=== PATIENT | female | born 1990 | race African-American/Black ===

== ENCOUNTER 2019-09-14 23:09 | Emergency (ER) | payer OTHER ==
[~2019-09-14] VITALS: Ht 180.3 cm; Wt 118.0 kg
--- NOTE | 2019-09-14 23:27 | PHYS DOC ---
Past History Past Medical History: Anemia, Anxiety, Asthma, Bronchitis, Migraines, Sinusitis Past Medical History Pulmonary Nodule 1.5 cm Rt. Hilar Smoking: Cigarettes General Adult EDM: Chief Complaint: DIZZY/LIGHT HEADED HPI: HPI: ".. I been dizzy... ".. I getting numbness in my hands.. feet... It been going on for over a week and 1/2.. I had something like this before in 2015... they thought I had blood clots... it runs in my family.. mother and grandmother... I was in [place]... just moved here recently this past December.. Patient is a 29 year old female works for the [employer] who presents with above hx and complaints of frontal headache, episodes of dizziness, peripheral numbness in hands and feet. Patient has history of the symptoms for the past week and a half. Patient previous had similar symptoms in 2014 when she was worked up for blood clots. There is family history of DVTs and pulmonary embolism with grandmother and mother. Patient does smoke tobacco and does have Deprol control and left arm. No recent travel outside the [facility] area. No specific ill contacts. Patient does have a history of pneumonia., Migraines, asthma, bronchitis, and continued tobacco use. Review of Systems: Review of Systems: Constitutional: Denies fever or chills Eyes: Denies change in visual acuity HENT: Denies nasal congestion or sore throat Respiratory: Complains of a nonproductive cough and some shortness of breath Cardiovascular: Denies chest pain or edema GI: Denies abdominal pain, , vomiting, bloody stools or diarrhea . Complains of nausea : Denies dysuria Musculoskeletal: Denies back pain or joint pain Integument: Denies rash Neurologic: Complains of headache. Denies focal weakness or sensory changes . Complaints of dizziness Endocrine: Denies polyuria or polydipsia Lymphatic: Denies swollen glands Psychiatric: Denies depression or anxiety Heart Score: HEART Score for Chest Pain: HEART Score for Chest Pain Response (Comments) Value History Moderately Suspicious 1 ECG Nonspecific Repolarizatio 1 Age < 45 0 Risk Factors 1 or 2 Risk Factors 1 Troponin < Normal Limit 0 Total 3 Risk Factors: Risk Factors: DM, Current or recent (<one month) smoker, HTN, HLP, family history of CAD, obesity. Risk Scores: Score 0 - 3: 2.5% MACE over next 6 weeks - Discharge Home Score 4 - 6: 20.3% MACE over next 6 weeks - Admit for Clinical Observation Score 7 - 10: 72.7% MACE over next 6 weeks - Early Invasive Strategies Family History: Family History: Pulmonary embolisms and DVTs and mother and grandmother Current Medications: Current Meds: See nursing for home medications Allergies: Allergies: No known drug allergies Physical Exam: PE: Constitutional: Moderate acute distress, non-toxic appearance. [] HENT: Normocephalic, atraumatic, bilateral external ears normal, oropharynx moist, no oral exudates, nose swollen turbinates. Eyes: PERRLA, EOMI, conjunctiva normal, no discharge. [] Neck: Normal range of motion, no tenderness, supple, no stridor. [] Cardiovascular:Heart rate regular rhythm, no murmur [] Lungs & Thorax: Bilateral breath sounds equal apex with few scattered wheezes auscultation [] Abdomen: Bowel sounds normal, soft, no tenderness, no masses, no pulsatile masses. Obese Skin: Warm, dry, no erythema, no rash. [] Back: No tenderness, no CVA tenderness. [] Extremities: No tenderness, no cyanosis, no clubbing, ROM intact, no edema. No appreciable cording in the legs Neurologic: Alert and oriented X 3, normal motor function, normal sensory function, no focal deficits noted. DTRs +2 patellar and brachial. Patient is amatory without problems. No drift. Psychologic: Affect anxious, judgement normal, mood normal. [] EKG: EKG: My interpretation EKG shows a supraventricular rhythm at ventricular rate of 67. Does have right axis deviation. There is some nonspecific contour abnormalities, however no findings of acute STEMI with contralateral changes. [] Radiology/Procedures: Radiology/Procedures: [address] [address] IMAGING REPORT Signed PATIENT: MONICA ROBERTO ACCOUNT: [id number] : 1990 LOCATION: ER AGE: 29 SEX: F EXAM STATUS: REG ER ORD. PHYSICIAN: TAHMINA NYE MD REASON: dyspnea, hx PE/DVT, OMNI 350, 100ml PROCEDURE: CT ANGIOGRAPHY CHEST CT angiography chest with contrast PQRS statement: CT scans at this facility use dose reduction including either automated exposure control, iterative reconstructions, and /or weight based radiation dosing via mA and kV modification when appropriate to reduce radiation dose to as low as reasonably achievable. HISTORY: Dyspnea. History of pulmonary embolism. Elevated d-dimer. TECHNIQUE: CT imaging of the chest with 3-D MIP reconstructions of the pulmonary arteries with 1 mm milliliters Omnipaque 350 intravenous contrast. FINDINGS: Heart size normal. Aorta and esophagus are unremarkable. No pulmonary artery emboli. Mild enlarged right hilar lymph nodes largest measuring 1.2 cm. No enlarged mediastinal adenopathy evident. No pneumothorax, pulmonary opacities or pleural effusions. The trachea and bronchi are unremarkable. Bones are unremarkable. Borderline enlarged axillary lymph nodes measuring up to 1 cm. IMPRESSION: 1. No acute process. No pulmonary artery emboli. 2. Mild enlarged right hilar 1.2 cm lymph node. This may be reactive. Conservative management with CT follow-up imaging in 6 months may be of benefit to document that this remains stable or resolves over time. Electronically signed by: Yoseph Grady MD (09/15/2019 3:43 AM) [id number] DICTATED AND SIGNED BY: YOSEPH GRADY MD DATE: 09/15/19342 CC: TAHMINA NYE MD; PCP,NO ~ [[address] [address] IMAGING REPORT Signed PATIENT: MONICA ROBERTO ACCOUNT: [id number] : 1990 LOCATION: ER AGE: 29 SEX: F EXAM STATUS: REG ER ORD. PHYSICIAN: TAHMINA NYE MD REASON: dyspnea, NAUSEA, DIZZINESS, EXTREMITIES NUMB PROCEDURE: ABDOMEN SUPINE & UPRIGHT PA and lateral chest x-ray HISTORY: Dizziness, dyspnea, extremity numbness FINDINGS: Heart size normal. Mediastinal silhouette is normal. No pneumothorax, pulmonary opacities or pleural effusions. Bones are unremarkable. IMPRESSION: No acute process. AP upright supine abdomen x-rays 2 views HISTORY: Nausea, dyspnea. FINDINGS: No pneumoperitoneum on the upright chest x-ray performed the same day. No abnormal dilated small bowel loops or abnormal air-fluid levels. There is mild gas within the small bowel. There is a moderate volume of stool within the large bowel. The bones and the soft tissues are unremarkable. IMPRESSION: Moderate volume of stool. No small bowel obstruction evident. Electronically signed by: Yoseph Grady MD (09/15/2019 2:20 AM) [id number] DICTATED AND SIGNED BY: YOSEPH GRADY MD DATE: 09/15/19219 CC: TAHMINA NYE MD; PCP,NO ~ ][place] [address] IMAGING REPORT Signed PATIENT: MONICA ROBERTO ACCOUNT: [id number] : 1990 LOCATION: ER AGE: 29 SEX: F EXAM STATUS: REG ER ORD. PHYSICIAN: TAHMINA NYE MD REASON: headache, DIZZINESS, EXTREMITIES NUMB PROCEDURE: CT HEAD WO CONTRAST CT head without contrast PQRS statement: CT scans at this facility use dose reduction including either automated exposure control, iterative reconstructions, and /or weight based radiation dosing via mA and kV modification when appropriate to reduce radiation dose to as low as reasonably achievable. HISTORY: Headache, dizziness, extremity numbness. CT head findings: No intracranial hemorrhage, mass, hydrocephalus or infarction. No acute ischemic change evident. Partial opacification ethmoid sinuses. Orbits, mastoids and bones are unremarkable. IMPRESSION: No acute intracranial CT abnormality. Ethmoid sinus disease. Electronically signed by: Yoseph Grady MD (09/15/2019 1:49 AM) [id number] DICTATED AND SIGNED BY: YOSEPH GRADY MD DATE: 09/15/19148 CC: TAHMINA NYE MD; PCP,NO ~ Course & Med Decision Making: Course & Med Decision Making Pertinent Labs and Imaging studies reviewed. (See chart for details) Pt. requesting discharge. Pt. declines admission. Can not lay on ED bed any longer. Discuss CT and lab work-up with patient. Patient is aware the risk of discharge. Encourage patient to stop smoking. Explained to patient this is a major risk factor. Will start patient on Eliquis 2.5 mg twice a day for DVT prophylaxis. Patient will start Keflex 500 mg 3 times a day. Use normal saline rinses to nose. Use Flonase 2 sprays at night. Must follow-up review ED work- up with primary care. Impression: 1. Episodic dizziness 2. Headache 3. Episodic peripheral numbness in hands and feet 4. Leukocytosis 12.3 5. Anemia 11.5 hemoglobin 6. Mild elevation d-dimer 0.64 7. Ethmoid sinusitis 8. Obese 9. Atypical Migraines 10. Rt. Hilar Adenopathy 1.2 cm 11. Tobacco Use 12. Constipation [] Dragon Disclaimer: Dragon Disclaimer: This electronic medical record was generated, in whole or in part, using a voice recognition dictation system. Departure Departure: Disposition: HOME/RESIDENCE PRIOR TO ADM Condition: STABLE Referrals: PCP,HOWARD (PCP) Scripts Apixaban (ELIQUIS) 2.5 Mg Tablet 2.5 MG PO BID for DVT prophylaxis, #60 TAB Prov: TAHMINA NYE MD 09/15/19 Cephalexin (KEFLEX) 500 Mg Capsule 500 MG PO TID for sinusitis for 10 Days, BOTTLE Prov: TAHMINA NYE MD 09/15/19 Dragon Disclaimer This chart was dictated in whole or in part using Voice Recognition software in a busy, high-work load, and often noisy Emergency Department environment. It may contain unintended and wholly unrecognized errors or omissions. TAHMINA NYE MD Sep 14, 2019 23:27
[2019-09-15 00:36] LABS: BARBITURATES NEG (NEG); BENZODIAZEPINES NEG (NEG); CANNABINOIDS NEG (NEG); COCAINE NEG (NEG); METHADONE NEG (NEG); OPIATES NEG (NEG); PHENCYCLIDINE NEG (NEG)
[2019-09-15 00:39] LABS: AMPHETAMINE/METHAMPHETAMINE NEG (NEG)
[2019-09-15 00:41] LABS: CLARITY,URINE CLEAR; COLOR,URINE YELLOW
[2019-09-15 00:42] LABS: BACTERIA,URINE 0 /HPF (0-FEW); BILIRUBIN,URINE NEG (NEG); GLUCOSE,URINE NEG (NEG); NITRITE,URINE NEG (NEG); RBC,URINE 0 /HPF (0-2); SQUAMOUS EPITHELIAL CELL,UR FEW /LPF; UROBILINOGEN,URINE 0.2 mg/dL (0.2 mg/dL); WBC,URINE OCC /HPF (0-4)
[2019-09-15] MEDS: IV RINGERS SOLUTION,LACTATED 1,000 ML IV SCH ×2 (01:00→01:13)
[2019-09-15 01:09] LABS: ANION GAP 9 (6-14); BLOOD UREA NITROGEN 11 mg/dL (7-20); CALCIUM 8.5 mg/dL (8.5-10.1); CARBON DIOXIDE 26 mmol/L (21-32); CHLORIDE 106 mmol/L (98-107); GFR 78.8; GLUCOSE 99 mg/dL (70-99); POTASSIUM 3.5 mmol/L (3.5-5.1); SODIUM 141 mmol/L (136-145)
[2019-09-15 01:11] LABS: BASO # 0.1 x10^3/uL (0.0-0.2); BASO % 1 % (0-3); EOS # 2.4 x10^3/uL (0.0-0.7); EOS % 19 % (0-3); HEMATOCRIT 35.4 % (36.0-47.0); HEMOGLOBIN 11.5 g/dL (12.0-15.5); LYMPH # 4.3 x10^3/uL (1.0-4.8); LYMPH % 35 % (24-48); MEAN CORPUSCULAR HEMOGLOBIN 27 pg (25-35); MEAN CORPUSCULAR HGB CONC 33 g/dL (31-37); MEAN CORPUSCULAR VOLUME 83 fL (79-100); MONO # 0.6 x10^3/uL (0.0-1.1); MONO % 5 % (0-9); NEUT % 41 % (31-73); PLATELET COUNT 342 x10^3/uL (140-400); RED BLOOD COUNT 4.28 x10^6/uL (3.50-5.40); RED CELL DISTRIBUTION WIDTH 14.6 % (11.5-14.5); WHITE BLOOD COUNT 12.3 x10^3/uL (4.0-11.0)
[2019-09-15 01:15] LABS: ALBUMIN 3.4 g/dL (3.4-5.0); ALK PHOS 75 U/L (46-116); ALT (SGPT) 16 U/L (14-59); AST (SGOT) 12 U/L (15-37); MAGNESIUM 1.9 mg/dL (1.8-2.4); TOTAL PROTEIN 6.8 g/dL (6.4-8.2)
[2019-09-15 01:17] LABS: DIRECT BILIRUBIN < 0.1 mg/dL (0.0-0.2); TOTAL BILIRUBIN < 0.1 mg/dL (0.2-1.0)
--- NOTE | 2019-09-15 01:52 | RAD ---
CT head without contrast PQRS statement: CT scans at this facility use dose reduction including either automated exposure control, iterative reconstructions, and /or weight based radiation dosing via mA and kV modification when appropriate to reduce radiation dose to as low as reasonably achievable. HISTORY: Headache, dizziness, extremity numbness. CT head findings: No intracranial hemorrhage, mass, hydrocephalus or infarction. No acute ischemic change evident. Partial opacification ethmoid sinuses. Orbits, mastoids and bones are unremarkable. IMPRESSION: No acute intracranial CT abnormality. Ethmoid sinus disease. Electronically signed by: Josue Grady MD (09/15/2019 1:49 AM) [id number]
--- NOTE | 2019-09-15 02:23 | RAD ---
PA and lateral chest x-ray HISTORY: Dizziness, dyspnea, extremity numbness FINDINGS: Heart size normal. Mediastinal silhouette is normal. No pneumothorax, pulmonary opacities or pleural effusions. Bones are unremarkable. IMPRESSION: No acute process. AP upright supine abdomen x-rays 2 views HISTORY: Nausea, dyspnea. FINDINGS: No pneumoperitoneum on the upright chest x-ray performed the same day. No abnormal dilated small bowel loops or abnormal air-fluid levels. There is mild gas within the small bowel. There is a moderate volume of stool within the large bowel. The bones and the soft tissues are unremarkable. IMPRESSION: Moderate volume of stool. No small bowel obstruction evident. Electronically signed by: Josue Grady MD (09/15/2019 2:20 AM) [id number]
[2019-09-15] MEDS ORDERED: IOHEXOL 350 MG/ML 100 ML VIAL. IV ONE (03:30)
[2019-09-15] MEDS ORDERED: ENOXAPARIN ** NOTE DOSE ** SYRINGE SQ ONE (03:30)
[2019-09-15] MEDS ORDERED: CONTRAST GIVEN MC PRN (03:45)
--- NOTE | 2019-09-15 03:46 | RAD ---
CT angiography chest with contrast PQRS statement: CT scans at this facility use dose reduction including either automated exposure control, iterative reconstructions, and /or weight based radiation dosing via mA and kV modification when appropriate to reduce radiation dose to as low as reasonably achievable. HISTORY: Dyspnea. History of pulmonary embolism. Elevated d-dimer. TECHNIQUE: CT imaging of the chest with 3-D MIP reconstructions of the pulmonary arteries with 1 mm milliliters Omnipaque 350 intravenous contrast. FINDINGS: Heart size normal. Aorta and esophagus are unremarkable. No pulmonary artery emboli. Mild enlarged right hilar lymph nodes largest measuring 1.2 cm. No enlarged mediastinal adenopathy evident. No pneumothorax, pulmonary opacities or pleural effusions. The trachea and bronchi are unremarkable. Bones are unremarkable. Borderline enlarged axillary lymph nodes measuring up to 1 cm. IMPRESSION: 1. No acute process. No pulmonary artery emboli. 2. Mild enlarged right hilar 1.2 cm lymph node. This may be reactive. Conservative management with CT follow-up imaging in 6 months may be of benefit to document that this remains stable or resolves over time. Electronically signed by: Josue Grady MD (09/15/2019 3:43 AM) [id number]
[2019-09-15 04:06] VITALS: BP 113/86
[2019-09-15] MEDS ORDERED: APIX2.5T PO (04:11)
[2019-09-15] MEDS ORDERED: CEPH-264 PO (04:11)
[2019-09-15] MEDS ORDERED: CEPHALEXIN 250 MG CAPSULE PO ONE (04:15)
[2019-09-15] MEDS ORDERED: cefTRIAXone IM 1 GM VIAL IM ONE ×2 (04:30→04:31)
--- NOTE | 2019-09-15 05:45 | EKG ---
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
== END 2019-09-15 04:45 | disposition home or self-care (01) ==
LOC: ER 23:09
DX: G43.909 Migraine, unspecified, not intractable, without status migrainosus (principal); R42 Dizziness and giddiness; R20.0 Anesthesia of skin; D72.829 Elevated white blood cell count, unspecified; D64.9 Anemia, unspecified; R79.1 Abnormal coagulation profile; J32.2 Chronic ethmoidal sinusitis; R59.0 Localized enlarged lymph nodes; K59.00 Constipation, unspecified; E66.9 Obesity, unspecified; F41.9 Anxiety disorder, unspecified; J45.909 Unspecified asthma, uncomplicated; F17.210 Nicotine dependence, cigarettes, uncomplicated; Z86.2 Personal history of diseases of the blood and blood-forming organs and certain disorders involving the immune mechanism; Z68.36 Body mass index [BMI] 36.0-36.9, adult
CPT/HCPCS: 36415; 70450; 71046; 71275; 74019; 80048; 80076; 80307; 81001; 81025; 82550; 83735; 84443; 84484; 85025; 85379; 85610; 85730; 93005; 96360; 96372; 99285; J0696; J1650; J7120; Q9967

== ENCOUNTER 2019-10-19 14:11 | Emergency (ER) | payer OTHER ==
[~2019-10-19] VITALS: Ht 180.3 cm; Wt 116.9 kg
[~2019-10-19 14:11] MED LIST: APIX2.5T PO; CEPH-264 PO
[2019-10-19] MEDS ORDERED: IV NORMAL SALINE 1,000ML 1,000 ML IV ONE (14:45)
[2019-10-19] MEDS ORDERED: ASPIRIN 325 MG TABLET PO ONE (14:50)
[2019-10-19] MEDS ORDERED: IOHEXOL 350 MG/ML 100 ML VIAL. IV ONE (14:55)
--- NOTE | 2019-10-19 14:56 | PHYS DOC ---
Past History Past Medical History: Asthma Additional Past Medical Histor: PE Past Surgical History: No Surgical History Smoking: Cigarettes Alcohol Use: Occasionally General Adult EDM: Chief Complaint: BACK PAIN - NO INJURY HPI: HPI: Patient is a [age] year old [sex] who presents with [] Review of Systems: Review of Systems: Constitutional: Denies fever or chills Eyes: Denies redness or discharge HENT: Denies nasal congestion or sore throat Respiratory: Denies cough or shortness of breath Cardiovascular: Denies chest pain or palpitations GI: Denies abdominal pain, nausea, vomiting, or diarrhea : Denies dysuria or hematuria Musculoskeletal: Denies back pain or joint pain Integument: Denies rash or skin lesion Neurologic: Denies headache, focal weakness or sensory changes Psychiatric: Denies depression or anxiety Complete systems were reviewed and found to be within normal limits, except as documented in this note. Heart Score: HEART Score for Chest Pain: HEART Score for Chest Pain Response (Comments) Value History Slighlty/Non-Suspicious 0 ECG Normal 0 Age < 45 0 Risk Factors No Risk Factors 0 Troponin < Normal Limit 0 Total 0 Current Medications: Current Meds: Current Medications Medications (Trade) Dose Ordered Sig/Christal Start Time Stop Time Status Last Admin Dose Admin Aspirin (Noemi Aspirin) 325 mg 1X ONCE 10/19/19 14:50 10/19/19 14:51 DC Iohexol (Omnipaque 350 Mg/ml) 100 ml 1X ONCE 10/19/19 14:55 10/19/19 14:56 Sodium Chloride 1,000 ml @ 1,000 mls/hr 1X ONCE 10/19/19 14:45 10/19/19 15:44 Allergies: Allergies: Allergies Coded Allergies Type Severity Reaction Last Updated Verified No Known Drug Allergies 09/15/19 No Physical Exam: PE: Constitutional: Well developed, well nourished, no acute distress, non-toxic appearance HENT: Normocephalic, atraumatic Eyes: PERRL, EOMI, conjunctiva normal, no discharge Neck: Normal range of motion, no tenderness, supple Cardiovascular: Heart rate normal, regular rhythm Lungs & Thorax: No respiratory distress, equal chest rise and fall Abdomen: Soft, no tenderness Skin: Warm, dry, no erythema, no rash Back: No tenderness, no CVA tenderness. Extremities: No tenderness, ROM intact, no edema Neurologic: Alert and oriented X 3, normal motor function, normal sensory function, no focal deficits noted Psychologic: Affect normal, judgement normal Current Patient Data: Vital Signs: Vital Signs Date Time Temp Pulse Resp B/P (MAP) Pulse Ox O2 Delivery O2 Flow Rate FiO2 10/19/19 14:31 98.0 107 18 116/72 (87) 98 Room Air EKG: EKG: @1450 NSR at 90bpm, NO ST elevation, QRS 82ms, QT/QTc 374/462ms Radiology/Procedures: Radiology/Procedures: PROCEDURE: CT ANGIOGRAPHY CHEST CT ANGIOGRAPHY CHEST History: Back pain. Pleuritic chest pain. Technique: CT of the chest was performed with intravenous contrast. PE protocol. Maximum intensity projection coronal and sagittal reconstructions were performed. Exposure: One or more of the following individualized dose reduction techniques were utilized for this examination: 1. Automated exposure control 2. Adjustment of the mA and/or kV according to patient size 3. Use of iterative reconstruction technique. Comparison: September 15, 2019 Findings: Chest: No pulmonary embolism. No aortic aneurysm or dissection. Mildly enlarged right hilar lymph node, unchanged. No consolidation or pleural effusion. Upper abdomen: The imaged upper abdomen is unremarkable. Bones: No pathologic osseous lesions. Impression: 1. No acute intrathoracic pathology. No pulmonary embolism. 2. Mildly enlarged right hilar lymph node, unchanged. Recommend continued follow-up as previously stated. Electronically signed by: Sen Ortiz DO (10/19/2019 3:40 PM) [id number] Course & Med Decision Making: Course & Med Decision Making Pertinent Labs and Imaging studies reviewed. (See chart for details) Patient stable for discharge home with outpatient follow-up with PCP. Discussed findings and plan with patient, who acknowledges understanding and agreement. Dragon Disclaimer: innocutis Disclaimer: This electronic medical record was generated, in whole or in part, using a voice recognition dictation system. Departure Departure: Impression: Primary Impression: Thoracic back pain Qualified Codes: M54.6 - Pain in thoracic spine Disposition: 01 HOME/RESIDENCE PRIOR TO ADM Condition: STABLE Referrals: YOVANI CRUZ MD (PCP) Patient Instructions: Back Pain, Adult, [id number] Scripts Orphenadrine Citrate (ORPHENADRINE CITRATE) 100 Mg Tablet.er 1 TAB PO BID PRN for MUSCLE PAIN, #14 TAB 0 Refills Prov: OCTAVIANO MARQUEZ DO 10/19/19 OCTAVIANO MARQUEZ DO October 19, 2019 14:56
[2019-10-19 15:20] LABS: BASO # 0.1 x10^3/uL (0.0-0.2); BASO % 1 % (0-3); EOS # 1.3 x10^3/uL (0.0-0.7); EOS % 12 % (0-3); HEMATOCRIT 35.5 % (36.0-47.0); HEMOGLOBIN 11.8 g/dL (12.0-15.5); LYMPH # 2.8 x10^3/uL (1.0-4.8); LYMPH % 27 % (24-48); MEAN CORPUSCULAR HEMOGLOBIN 27 pg (25-35); MEAN CORPUSCULAR HGB CONC 33 g/dL (31-37); MEAN CORPUSCULAR VOLUME 81 fL (79-100); MONO # 0.5 x10^3/uL (0.0-1.1); MONO % 5 % (0-9); NEUT # 5.7 x10^3uL (1.8-7.7); NEUT % 55 % (31-73); PLATELET COUNT 331 x10^3/uL (140-400); RED BLOOD COUNT 4.37 x10^6/uL (3.50-5.40); RED CELL DISTRIBUTION WIDTH 14.7 % (11.5-14.5); WHITE BLOOD COUNT 10.4 x10^3/uL (4.0-11.0)
[2019-10-19 15:33] LABS: CALCIUM 8.6 mg/dL (8.5-10.1); CREATININE 0.9 mg/dL (0.6-1.0); POTASSIUM 3.8 mmol/L (3.5-5.1)
[2019-10-19 15:37] LABS: BILIRUBIN,URINE NEG (NEG); CLARITY,URINE CLEAR; COLOR,URINE YELLOW; GLUCOSE,URINE NEG (NEG); NITRITE,URINE NEG (NEG); UROBILINOGEN,URINE 0.2 mg/dL (0.2 mg/dL)
[2019-10-19 15:42] LABS: RBC,URINE 0 /HPF (0-2); WBC,URINE 0 /HPF (0-4)
[2019-10-19 15:43] LABS: BACTERIA,URINE FEW /HPF (0-FEW); SQUAMOUS EPITHELIAL CELL,UR FEW /LPF
--- NOTE | 2019-10-19 15:43 | RAD ---
CT ANGIOGRAPHY CHEST History: Back pain. Pleuritic chest pain. Technique: CT of the chest was performed with intravenous contrast. PE protocol. Maximum intensity projection coronal and sagittal reconstructions were performed. Exposure: One or more of the following individualized dose reduction techniques were utilized for this examination: 1. Automated exposure control 2. Adjustment of the mA and/or kV according to patient size 3. Use of iterative reconstruction technique. Comparison: September 15, 2019 Findings: Chest: No pulmonary embolism. No aortic aneurysm or dissection. Mildly enlarged right hilar lymph node, unchanged. No consolidation or pleural effusion. Upper abdomen: The imaged upper abdomen is unremarkable. Bones: No pathologic osseous lesions. Impression: 1. No acute intrathoracic pathology. No pulmonary embolism. 2. Mildly enlarged right hilar lymph node, unchanged. Recommend continued follow-up as previously stated. Electronically signed by: Sen Ortiz DO (10/19/2019 3:40 PM) [id number]
--- NOTE | 2019-10-19 15:45 | EKG ---
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
[2019-10-19 16:04] VITALS: BP 117/55
[2019-10-19 16:17] LABS: ALBUMIN 3.3 g/dL (3.4-5.0); ALBUMIN/GLOBULIN RATIO 0.9 (1.0-1.7); TOTAL BILIRUBIN 0.3 mg/dL (0.2-1.0)
[2019-10-19] MEDS ORDERED: ORPH-16 PO (16:21)
== END 2019-10-19 16:52 | disposition home or self-care (01) ==
LOC: ER 14:11
DX: M54.6 Pain in thoracic spine (principal); J45.909 Unspecified asthma, uncomplicated; Z86.711 Personal history of pulmonary embolism; F17.210 Nicotine dependence, cigarettes, uncomplicated
CPT/HCPCS: 36415; 71275; 80053; 81001; 82553; 83690; 83735; 83880; 84484; 85025; 85610; 85730; 93005; 99285; Q9967; J7030

== ENCOUNTER 2019-11-01 08:51 | Emergency (ER) | payer OTHER ==
[~2019-11-01] VITALS: Ht 180.3 cm; Wt 118.2 kg
[2019-11-01 08:51] VITALS: BP 139/86
[~2019-11-01 08:51] MED LIST changes: +ORPH-16 PO
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
== END 2019-11-01 09:50 | disposition home or self-care (01) ==
LOC: ER 08:51
DX: S09.90XA Unspecified injury of head, initial encounter (principal); J45.909 Unspecified asthma, uncomplicated; F17.210 Nicotine dependence, cigarettes, uncomplicated; Y08.89XA Assault by other specified means, initial encounter; Y93.89 Activity, other specified; Y92.148 Other place in prison as the place of occurrence of the external cause; Y99.0 Civilian activity done for income or pay
CPT/HCPCS: 99281

== ENCOUNTER 2021-04-30 20:20 | Emergency (ER) | payer BC, OTHER ==
[~2021-04-30] VITALS: Ht 177.8 cm; Wt 123.2 kg
--- NOTE | 2021-04-30 21:04 | PHYS DOC ---
Past History Past Medical History: Anemia, Asthma, Other Additional Past Medical Histor: PE (VAIBHAV ROMERO APRN) Past Surgical History: No Surgical History (VAIBHAV ROMERO APRN) Smoking: Cigarettes Alcohol Use: Occasionally Drug Use: None (VAIBHAV ROMERO APRN) General Adult EDM: Chief Complaint: SHORTNESS OF BREATH HPI: HPI: Patient is a 30-year-old female who presents to the emergency department for multiple complaints including fatigue, thoracic back pain/body aches and shortness of breath. She reports that she has had a thoracic back pain for approximately 3 weeks. She rates it 5 out of 10. It is worse with movement. She denies any injury or heavy lifting. She reports the fatigue and the shortness of breath started 5 days ago. She denies any fevers, cough, sick exposure, nausea, vomiting. She reports that she has been having intermittent epigastric pain x3 weeks but denies it currently. Patient is vaccinated for COVID-19. She has a history of asthma and is a current smoker. (VAIBHAV ROMERO APRN) Review of Systems: Review of Systems: Constitutional: See HPI Respiratory: See HPI Cardiovascular: See HPI GI: See HPI Musculoskeletal: See HPI (VAIBHAV ROMERO APRN) Allergies: Allergies: Allergies Coded Allergies Type Severity Reaction Last Updated Verified No Known Drug Allergies 11/01/19 No (VAIBHAV ROMERO APRN) Physical Exam: PE: Constitutional: Well developed, well nourished, no acute distress, non-toxic appearance. [] HENT: Normocephalic, atraumatic, bilateral external ears normal, oropharynx moist, no oral exudates, nose normal. [] Eyes: PERRL, EOMI, conjunctiva normal, no discharge. [] Neck: Normal range of motion, no bony spinal tenderness, no meningeal signs, supple, no stridor. [] Cardiovascular:Heart rate regular rhythm, no murmur [] Lungs & Thorax: Bilateral breath sounds clear to auscultation [] Abdomen: Bowel sounds normal, soft, no tenderness, obese, no masses, no pulsatile masses. [] Skin: Warm, dry, no erythema, no rash. [] Back: [place]ony spinal tenderness, thoracic bilateral paraspinal tenderness with palpation, no obvious deformities, normal rom Extremities: No tenderness, no cyanosis, no clubbing, ROM intact, no edema. [] Neurologic: Alert and oriented X 3, normal motor function, normal sensory function, no focal deficits noted. [] Psychologic: Affect normal, judgement normal, mood normal. [] (VAIBHAV ROMERO APRN) Current Patient Data: Labs: Laboratory Tests Test 04/30/21 21:10 04/30/21 21:18 04/30/21 21:25 04/30/21 21:30 White Blood Count 10.8 x10^3/uL Red Blood Count 4.16 x10^6/uL Hemoglobin 10.5 g/dL Hematocrit 32.3 % Mean Corpuscular Volume 78 fL Mean Corpuscular Hemoglobin 25 pg Mean Corpuscular Hemoglobin Concent 33 g/dL Red Cell Distribution Width 15.9 % Platelet Count 364 x10^3/uL Neutrophils (%) (Auto) 46 % Lymphocytes (%) (Auto) 39 % Monocytes (%) (Auto) 6 % Eosinophils (%) (Auto) 8 % Basophils (%) (Auto) 1 % Neutrophils # (Auto) 5.0 x10^3uL Lymphocytes # (Auto) 4.3 x10^3/uL Monocytes # (Auto) 0.6 x10^3/uL Eosinophils # (Auto) 0.8 x10^3/uL Basophils # (Auto) 0.1 x10^3/uL Sodium Level 140 mmol/L Potassium Level 3.8 mmol/L Chloride Level 107 mmol/L Carbon Dioxide Level 26 mmol/L Anion Gap 7 Blood Urea Nitrogen 10 mg/dL Creatinine 1.1 mg/dL Estimated GFR (Cockcroft-Gault) 70.1 BUN/Creatinine Ratio 9 Glucose Level 84 mg/dL Calcium Level 8.7 mg/dL Total Bilirubin 0.1 mg/dL Aspartate Amino Transf (AST/SGOT) 15 U/L Alanine Aminotransferase (ALT/SGPT) 16 U/L Alkaline Phosphatase 76 U/L Troponin I High Sensitivity < 4 ng/L Total Protein 7.2 g/dL Albumin 3.4 g/dL Albumin/Globulin Ratio 0.9 Influenza Type A (Rapid) Negative Influenza Type B (Rapid) Negative SARS-CoV-2 Antigen (Rapid) Negative Urine Collection Type Unknown Urine Color Yellow Urine Clarity Clear Urine pH 6.5 Urine Specific [place] 1.020 Urine Protein Neg Urine Glucose (UA) Neg mg/dL Urine Ketones (Stick) Neg mg/dL Urine Blood Trace Urine Nitrite Neg Urine Bilirubin Neg Urine Urobilinogen Dipstick 0.2 mg/dL Urine Leukocyte Esterase Neg Urine RBC Rare /HPF Urine WBC Occ /HPF Urine Squamous Epithelial Cells Occ /LPF Urine Bacteria 0 /HPF Bedside Urine HCG, Qualitative hcg negative Test 04/30/21 23:05 D-Dimer (Sarah) 0.65 mg/L Current Medications Medications (Trade) Dose Ordered Sig/Christal Route PRN Reason Start Time Stop Time Status Last Admin Dose Admin Acetaminophen/ Hydrocodone Bitart (Lortab 5/325) 1 tab 1X ONCE PO 04/30/21 21:30 04/30/21 21:31 DC 04/30/21 21:30 Iohexol (Omnipaque 350 Mg/ml) 100 ml 1X ONCE IV 05/01/21 01:00 05/01/21 01:01 Info (Do NOT chart on this entry -- for MONITORING) 1 each PRN DAILY PRN MC SEE COMMENTS 05/01/21 00:45 05/03/21 00:44 (VAIBHAV ROMERO APRN) EKG: EKG: EKG performed by ER staff at 2213 shows sinus rhythm with a heart rate of 78, QTc of 451, no STEMI read by Dr. Candelaria at 2217 [] (VAIBHAV ROMERO APRN) Radiology/Procedures: Radiology/Procedures: []PROCEDURE: THORACIC SPINE 3V Study: XR THORACIC SPINE 3VIEWS Indication: Shortness of air. Upper back pain. Comparison: CT chest 10/19/2019 Findings: Minimal thoracic dextrocurvature. Vertebral body height and alignment is within normal limits on the lateral views. Incompletely assessed posterior elements on account of osseous overlap but no advanced facet degeneration is appreciated or fracture. Minimal degenerative endplate irregularity at a few levels. No disc space collapse. Impression: No acute radiographic abnormality of the thoracic spine or advanced spondylosis. Electronically signed by: CARSON SCHROEDER MD (04/30/2021 11:30 PM) [facility] DICTATED AND SIGNED BY: CARSON SCHROEDER MD DATE: 04/30/21 2323 CC: EMERGENCY,DEPARTMENT; VAIBHAV ROMERO APRN; PCP,UNKNOWN ~MTH0 0 PROCEDURE: PORTABLE CHEST 1V Study: XR CHEST 1V Indication: Shortness of air. Comparison: 09/15/2019 Findings: The cardiomediastinal silhouette and angelo are within normal limits. No localized airspace opacity, pleural effusion or pneumothorax. Impression: No acute radiographic abnormality of the chest. No relevant change from the 09/15/2019 comparison. Electronically signed by: CARSON SCHROEDER MD (04/30/2021 11:29 PM) [facility] DICTATED AND SIGNED BY: CARSON SCHROEDER MD DATE: 04/30/21 2684 CC: EMERGENCY,DEPARTMENT; VAIBHAV ROMERO APRN; PCP,UNKNOWN ~MTH0 0 (VAIBHAV ROMERO APRN) Radiology/Procedures: [address] [place] [id number] IMAGING REPORT Signed PATIENT: MONICA ROBERTO ACCOUNT: [id number] : 1990 LOCATION: ER AGE: 30 SEX: F EXAM STATUS: REG ER ORD. PHYSICIAN: VAIBHAV ROMERO APRN REASON: elevated ddimer, soa, OMNI 350, 100ml PROCEDURE: CT ANGIOGRAPHY CHEST INDICATION: Reason: elevated ddimer, soa, OMNI 350, 100ml / Spl. Instructions: / History: COMPARISON: September 2019 TECHNIQUE: Axial CT images obtained through the chest. Intravenous contrast utilized. Angiogram 3D images processed per protocol. One or more of the following individualized dose reduction techniques were utilized for this examination: 1. Automated exposure control; 2. Adjustment of the mA and/or kV according to patient size; 3. Use of iterative reconstruction technique. FINDINGS: No focal airspace consolidation or pulmonary edema. Partially visualized liver appears prominent in size. Repeat demonstration of prominent right hilar lymph node measuring up to about 15 mm short axis. There is also prominent lymph node in the subcarinal region. Portion of the ascending thoracic aorta is obscured by motion but no aneurysm is seen at visualized portion. There are some prominent lymph nodes in the axilla bilaterally again seen. Degenerative changes spine. Patient motion limits evaluation for pulmonary embolus but no central embolus is seen with peripheral vessels obscured by motion. IMPRESSION: No central pulmonary embolus. No focal airspace consolidation to suggest pneumonia. Repeat demonstration of some mildly enlarged lymph nodes in the bilateral axilla as well as the mediastinum Electronically signed by: Jamia Nolasco MD (05/01/2021 2:32 AM) [id number] DICTATED AND SIGNED BY: JAMIA NOLASCO MD DATE: 05/01/21223 CC: TAHMINA CANDELARIA MD; VAIBHAV ROMERO APRN; PCP,UNKNOWN ~MTH0 0 (TAHMINA CANDELARIA MD) Heart Score: C/O Chest Pain: No Risk Factors: Risk Factors: DM, Current or recent (<one month) smoker, HTN, HLP, family history of CAD, obesity. Risk Scores: Score 0 - 3: 2.5% MACE over next 6 weeks - Discharge Home Score 4 - 6: 20.3% MACE over next 6 weeks - Admit for Clinical Observation Score 7 - 10: 72.7% MACE over next 6 weeks - Early Invasive Strategies (VAIBHAV ROMERO APRN) Course & Med Decision Making: Course & Med Decision Making Pertinent Labs and Imaging studies reviewed. (See chart for details) Patient presents to the emergency department for fatigue, shortness of breath and thoracic back pain. Patient was noted to be mildly tachycardic upon ER arrival with a heart rate of 101. Work-up in the ER consisted of blood work, EKG, COVID-19 and influenza testing, chest x-ray and imaging of thoracic spine. Patient's heart rate has improved and is currently 85, she is afebrile and not hypoxic or requiring any oxygen. Patient's rapid influenza and COVID-19 test was negative. Her CBC, CMP, Trop were unremarkable. Chest x-ray showed no acute findings. Thoracic spine x-ray showed no acute findings. Patient's pain treated in the ER. Patient has hx of pe with her symptoms of shortness of breath, ddimer ordered. Patient is no longer taking eliquis. Ddimer elevated, CT angio ordered. 0100: awaiting ct angio results. I discussed patients case with supervising physician and he will assume patient care at this time. (VAIBHAV ROMERO APRN) Course & Med Decision Making See Ramesh for details prior shift change. CT pending. Patient continue MDI 2 puffs 4 times a day. Take prednisone 50 mg a day for 5 days. Return if any concerns. Follow-up primary care and have them review ED record. Impression: 1. Dyspnea 2. Pleurisy 3. Mild Elevation D-dimer (TAHMINA CANDELARIA MD) Dragon Disclaimer: Dragon Disclaimer: This electronic medical record was generated, in whole or in part, using a voice recognition dictation system. (VAIBHAV ROMERO APRN) Departure Departure: Disposition: HOME / SELF CARE / HOMELESS Condition: GOOD Referrals: PCP,UNKNOWN (PCP) Scripts Prednisone (PREDNISONE) 50 Mg Tablet 50 MG PO DAILY for bronchitis, pleurisy for 5 Days, #5 TAB Prov: TAHMINA CANDELARIA MD 05/01/21 Sudeep Disclaimer This chart was dictated in whole or in part using Voice Recognition software in a busy, high-work load, and often noisy Emergency Department environment. It may contain unintended and wholly unrecognized errors or omissions. (TAHMINA CANDELARIA MD) Dragon Disclaimer This chart was dictated in whole or in part using Voice Recognition software in a busy, high-work load, and often noisy Emergency Department environment. It may contain unintended and wholly unrecognized errors or omissions. (TAHMINA CANDELARIA MD) VAIBHAV ROMERO APRN Apr 30, 2021 21:04 TAHMINA CANDELARIA MD May 01, 2021 01:02
[2021-04-30 21:15] VITALS: BP 163/97
[2021-04-30] MEDS ORDERED: HYDROcodone/APAP 5/325MG 1 TAB TABLET PO ONE (21:30)
[2021-04-30 21:44] LABS: BASO # 0.1 x10^3/uL (0.0-0.2); BASO % 1 % (0-3); EOS # 0.8 x10^3/uL (0.0-0.7); EOS % 8 % (0-3); HEMATOCRIT 32.3 % (36.0-47.0); HEMOGLOBIN 10.5 g/dL (12.0-15.5); LYMPH # 4.3 x10^3/uL (1.0-4.8); LYMPH % 39 % (24-48); MEAN CORPUSCULAR HEMOGLOBIN 25 pg (25-35); MEAN CORPUSCULAR HGB CONC 33 g/dL (31-37); MEAN CORPUSCULAR VOLUME 78 fL (79-100); MONO # 0.6 x10^3/uL (0.0-1.1); MONO % 6 % (0-9); NEUT % 46 % (31-73); PLATELET COUNT 364 x10^3/uL (140-400); RED BLOOD COUNT 4.16 x10^6/uL (3.50-5.40); RED CELL DISTRIBUTION WIDTH 15.9 % (11.5-14.5); WHITE BLOOD COUNT 10.8 x10^3/uL (4.0-11.0)
[2021-04-30 22:08] LABS: BACTERIA,URINE 0 /HPF (0-FEW); BILIRUBIN,URINE NEG (NEG); CLARITY,URINE CLEAR; COLOR,URINE YELLOW; GLUCOSE,URINE NEG (NEG); NITRITE,URINE NEG (NEG); RBC,URINE RARE /HPF (0-2); SQUAMOUS EPITHELIAL CELL,UR OCC /LPF; UROBILINOGEN,URINE 0.2 mg/dL (0.2 mg/dL); WBC,URINE OCC /HPF (0-4)
[2021-04-30 22:09] LABS: INFLUENZA A PATIENT NEGATIVE (NEGATIVE); INFLUENZA B PATIENT NEGATIVE (NEGATIVE)
[2021-04-30 22:16] LABS: CALCIUM 8.7 mg/dL (8.5-10.1); CREATININE 1.1 mg/dL (0.6-1.0); GFR 70.1; POTASSIUM 3.8 mmol/L (3.5-5.1)
[2021-04-30 22:22] LABS: ALBUMIN 3.4 g/dL (3.4-5.0); ALBUMIN/GLOBULIN RATIO 0.9 (1.0-1.7); TOTAL BILIRUBIN 0.1 mg/dL (0.2-1.0); TOTAL PROTEIN 7.2 g/dL (6.4-8.2)
--- NOTE | 2021-04-30 23:31 | RAD ---
Study: XR CHEST 1V Indication: Shortness of air. Comparison: 09/15/2019 Findings: The cardiomediastinal silhouette and angelo are within normal limits. No localized airspace opacity, pl eural effusion or pneumothorax. Impression: No acute radiographic abnormality of the chest. No relevant change from the 09/15/2019 comparison. Electronically signed by: CARSON SCHROEDER MD (04/30/2021 11:29 PM) [facility]
--- NOTE | 2021-04-30 23:32 | RAD ---
Study: XR THORACIC SPINE 3VIEWS Indication: Shortness of air. Upper back pain. Comparison: CT chest 10/19/2019 Findings: Minimal thoracic dextrocurvature. Vertebral body height and alignment is within normal limits on the lateral views. Incompletely assessed posterior elements on account of osseous overlap but no advanced facet degeneration is appreciated or fracture. Minimal degenerative endplate irregularity at a few l evels. No disc space collapse. Impression: No acute radiographic abnormality of the thoracic spine or advanced spondylosis. Electronically signed by: CARSON SCHROEDER MD (04/30/2021 11:30 PM) [facility]
--- NOTE | 2021-04-30 23:36 | EKG ---
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
[2021-05-01] MEDS ORDERED: CONTRAST GIVEN. MC PRN (00:45)
[2021-05-01] MEDS ORDERED: IOHEXOL 350 MG/ML 100 ML VIAL. IV ONE (01:00)
--- NOTE | 2021-05-01 02:34 | RAD ---
INDICATION: Reason: elevated ddimer, soa, OMNI 350, 100ml / Spl. Instructions: / History: COMPARISON: September 2019 TECHNIQUE: Axial CT images obtained through the chest. Intravenous contrast utilized. Angiogram 3D images proce ssed per protocol. One or more of the following individualized dose reduction techniques were utilized for this examinat ion: 1. Automated exposure control; 2. Adjustment of the mA and/or kV according to patient size; 3 . Use of iterative reconstruction technique. FINDINGS: No focal airspace consolidation or pulmonary edema. Partially visualized liver appears prominent in size. Repeat demonstration of prominent right hilar lymph node measuring up to about 15 mm short axis. Ther e is also prominent lymph node in the subcarinal region. Portion of the ascending thoracic aorta is obscured by motion but no aneurysm is seen at visualized p ortion. There are some prominent lymph nodes in the axilla bilaterally again seen. Degenerative changes spine. Patient motion limits evaluation for pulmonary embolus but no central emb olus is seen with peripheral vessels obscured by motion. IMPRESSION: No central pulmonary embolus. No focal airspace consolidation to suggest pneumonia. Repeat demonstration of some mildly enlarged lymph nodes in the bilateral axilla as well as the media stinum Electronically signed by: Kenney Nolasco MD (05/01/2021 2:32 AM) [id number]
[2021-05-01] MEDS ORDERED: KETOROLAC 30 MG/ML VIAL. IVP ONE (03:30)
[2021-05-01] MEDS ORDERED: ORPHENADRINE CITRATE 60 MG/2 ML VIAL. IV ONE (03:30)
[2021-05-01] MEDS ORDERED: PRED50TA PO (04:41)
[2021-05-01] MEDS ORDERED: ALBUTEROL SULFATE 8GM INHALER. INH ONE (05:00)
[2021-05-01] MEDS ORDERED: predniSONE 10 MG TABLET. PO ONE (05:00)
--- NOTE | 2021-05-02 11:32 | NUR ---
PATIENT NOTIFIED OF COVID RESULTS
== END 2021-05-01 05:01 | disposition home or self-care (01) ==
LOC: ER 20:20
DX: R09.1 Pleurisy (principal); R79.1 Abnormal coagulation profile; M54.6 Pain in thoracic spine; J45.909 Unspecified asthma, uncomplicated; F17.210 Nicotine dependence, cigarettes, uncomplicated; Z86.2 Personal history of diseases of the blood and blood-forming organs and certain disorders involving the immune mechanism; Z20.822 Contact with and (suspected) exposure to COVID-19
CPT/HCPCS: 36415; 71045; 71275; 72072; 80053; 81001; 81025; 84484; 85025; 85379; 87426; 87804; 93005; 94640; 96374; 96375; 99285; J1885; J2360; J7512; Q9967; U0003; 94664